=== PATIENT | male | born 1950 | race Caucasian/White ===

== ENCOUNTER 2021-06-01 16:50 | Emergency (ER) | payer OTHER ==
[2021-06-01 17:09] VITALS: BP 137/79; TEMP 98.2; BMI 32.8
[2021-06-01] MEDS ORDERED: ACETAMINOPHEN 325 MG TABLET (FP) ONE (17:50)
[2021-06-01] MEDS: ACETAMINOPHEN 325 MG TABLET (FP) PO ONE ×2 (18:00→18:04)
[2021-06-01 18:50] LABS: BASO % 0.9 % (0-2.0); EOS % 2.3 % (0-4.5); HEMATOCRIT 45.7 % (35.4-49); HEMOGLOBIN 15.8 GM/dL (11.7-16.9); LYMPH % 22.9 % (8-40); MCH 30.9 pg (25.7-33.7); MCHC 34.6 g/dl (32.0-35.9); MEAN CELL VOLUME 89.1 fl (80-96); MONO % 7.9 % (3.8-10.2); PLATELET COUNT 203 10^3/uL (134-434); RBC 5.13 M/mm3 (4.00-5.60); RDW 13.9 % (11.9-15.9); WHITE BLOOD COUNT 7.4 K/mm3 (4.0-10.0)
[2021-06-01 19:11] LABS: CHLORIDE 112 mmol/L (98-107); SODIUM 144 mmol/L (136-145)
[2021-06-01 19:13] LABS: CALCIUM 8.3 mg/dL (8.5-10.1)
[2021-06-01 19:14] LABS: ALBUMIN 3.7 g/dl (3.4-5.0); ANION GAP 4 MMOL/L (8-16); BLOOD UREA NITROGEN 17.2 mg/dL (7-18); CO2 28 mmol/L (21-32); GLUCOSE,RANDOM 72 mg/dL (74-106)
[2021-06-01 19:17] LABS: CREATININE 0.9 mg/dL (0.55-1.3); SGOT/AST 14 U/L (15-37); SGPT/ALT 30 U/L (13-61)
[2021-06-01 19:18] LABS: BILIRUBIN,TOTAL 0.9 mg/dL (0.2-1)
[2021-06-01 19:19] LABS: TOT PROT 6.6 g/dl (6.4-8.2)
[2021-06-01 19:20] LABS: ALK PHOS 71 U/L (45-117)
[2021-06-01 19:52] VITALS: PULSE 64
== END 2021-06-01 19:52 | disposition home or self-care (01) ==
LOC: JER 16:50
DX: R07.9 Chest pain, unspecified (principal)
CPT/HCPCS: 36415; 80053; 82550; 84484; 85025; 93005; 93010; 99284-25